=== PATIENT | female | born 1965 | race Caucasian/White ===

== ENCOUNTER 2023-08-18 11:36 | Outpatient (CLI) | payer MEDICAID, SELFPAY ==
--- NOTE | ~2023-08-18 | XR_ITS ---
EXAMINATION: XR chest 2V Exam Date/Time: 08/18/2023 12:07 CDT HISTORY: dyspnea, sob with exertion Comparison: None. RESULT: Lines, tubes, and devices: Cholecystectomy clips. Lungs and pleura: Clear. Cardiomediastinal silhouette: Unremarkable. Other: No acute osseous or upper abdominal finding. IMPRESSION: No acute cardiopulmonary process. Reviewed, dictated and finalized at location K.
[2023-08-18 12:09] LABS: Basophils Absolute Auto 0.06 K/mm3 (0.00-0.10); Basophils Percent Auto 0.7 % (0.0-1.0); Eosinophils Absolute Auto 0.25 K/mm3 (0.02-0.50); Hematocrit 38.5 % (35.0-49.0); Hemoglobin 12.2 g/dL (12.0-15.0); Immature Granulocyte Absolute 0.02 K/mm3 (0.00-0.00); Immature Granulocyte Percent A 0.2 % (0.0-0.0); Lymphocytes Absolute Auto 2.74 K/mm3 (1.10-4.50); Lymphocytes Percent Auto 33.4 % (18.0-42.0); Mean Corpuscular HGB Conc 31.7 g/dL (32-36); Mean Corpuscular Volume 94.8 fL (78.0-102.0); Mean Platelet Volume 9.9 fl (9.2-11.8); Monocytes Absolute Auto 0.63 K/mm3 (0.10-0.90); Monocytes Percent Auto 7.7 % (2.0-11.0); Neutrophils Absolute Auto 4.51 K/mm3 (1.70-7.20); Platelet Count Result 272 K/mm3 (150-420); Red Blood Count 4.06 M/mm3 (4.20-5.40); Red Cell Distribution Width 13.5 % (11.6-14.4); White Blood Count 8.2 K/mm3 (4.8-10.8)
[2023-08-18 12:46] LABS: Alanine Aminotransferase 17 U/L (14-59); Albumin Level 3.8 g/dL (3.4-5.0); Alkaline Phosphatase 71 U/L (46-116); Anion Gap 13 mmol/L (4-12); Aspartate Amino Transferase 12 U/L (15-37); Bilirubin,Total 0.5 mg/dL (0.00-1.00); Blood Urea Nitrogen 46 mg/dL (7-18); Calcium 8.9 mg/dL (8.5-10.1); Carbon Dioxide 22 mmol/L (21-32); Chloride 108 mmol/L (98-108); Estimated Glomerular Filt Rate 22; Glucose 97 mg/dL (70-99); Osmolality Calculated 307 mOsm/kg (285-295); Potassium 4.7 mmol/L (3.5-5.1); Sodium 143 mmol/L (136-145); Thyroid Stimulating Hormone 1.05 uIU/mL (0.36-3.74); Total Protein 7.4 g/dL (6.4-8.2)
== END 2023-08-18 11:37 | disposition home or self-care (01) ==
LOC: CHSLAB 11:41
PROVIDERS: PCP Family Medicine; Visit Provider Family Medicine
DX: R03.0 Elevated blood-pressure reading, without diagnosis of hypertension (principal); R06.00 Dyspnea, unspecified; Z12.39 Encounter for other screening for malignant neoplasm of breast
CPT/HCPCS: 36415; 71046; 80053; 84443; 85025

== ENCOUNTER 2023-08-20 08:43 | Outpatient (CLI) | payer MEDICAID, SELFPAY ==
--- NOTE | ~2023-08-20 | US_ITS ---
Renal-Bladder ultrasound Clinical History: Elevated creatinine Technique: Real-time sonographic imaging of the kidneys and urinary bladder was performed. Findings: The right kidney measures 14.6 cm in length and the left kidney measures 12.3 cm. There is moderate bilateral hydronephrosis. Renal cortical echogenicity is within normal limits. No renal mass lesion is identified. The urinary bladder is relatively collapsed. There is an apparent vascularized mass at the posterior bladder base measuring approximately 3.9 cm in diameter. Impression: Moderate bilateral hydronephrosis. Collapsed urinary bladder limits evaluation, but there is a suspected 3.9 cm soft tissue mass at the bladder base, which would be suspicious for neoplasm. Cystoscopy should be considered to further eval uate. Reviewed, dictated and finalized at location . Impression: Moderate bilateral hydronephrosis. Collapsed urinary bladder limits evaluation, but there is a suspected 3.9 cm so ft tissue mass at the bladder base, which would be suspicious for neoplasm. Cys toscopy should be considered to further evaluate.
== END 2023-08-20 08:44 | disposition home or self-care (01) ==
LOC: CHSIMG 08:44
PROVIDERS: PCP Family Medicine; Visit Provider Family Medicine
DX: R94.4 Abnormal results of kidney function studies (principal); N13.30 Unspecified hydronephrosis; R93.41 Abnormal radiologic findings on diagnostic imaging of renal pelvis, ureter, or bladder
CPT/HCPCS: 76775

== ENCOUNTER 2023-08-28 12:25 | Outpatient (CLI) | payer MEDICAID, SELFPAY ==
--- NOTE | ~2023-08-28 | MM_ITS ---
EXAMINATION: MM screening herman BI w shayna HISTORY: Screening TECHNIQUE: Craniocaudal and mediolateral oblique 3-D tomosynthesis images were obtained and synthetic 2-D images were generated. CAD analysis was submitted and interpreted. COMPARISON: No prior mammogram is available for comparison at this institution. BREAST PARENCHYMAL COMPOSITION: Not dense: There are scattered areas of fibroglandular density. FINDINGS: There are asymmetries centered in the upper outer quadrant of the right breast. No mammogra phic evidence for malignancy in the left breast. IMPRESSION: 1. Right breast asymmetries. 2. Additional mammographic views and possible breast ultrasound are recommended. BI-RADS Category 0: Incomplete: Needs additional imaging evaluation. Reviewed, dictated and finalized at location A. IMPRESSION: 1. Right breast asymmetries. 2. Additional mammographic views and possible breast ultrasound are recommended . BI-RADS Category 0: Incomplete: Needs additional imaging evaluation.
[2023-08-28 13:53] LABS: Anion Gap 9 mmol/L (4-12); Blood Urea Nitrogen 34 mg/dL (7-18); Calcium 8.5 mg/dL (8.5-10.1); Carbon Dioxide 28 mmol/L (21-32); Chloride 107 mmol/L (98-108); Estimated Glomerular Filt Rate 28; Glucose 97 mg/dL (70-99); Osmolality Calculated 305 mOsm/kg (285-295); Potassium 4.4 mmol/L (3.5-5.1); Sodium 144 mmol/L (136-145)
== END 2023-08-28 12:26 | disposition home or self-care (01) ==
PROVIDERS: PCP Family Medicine; Visit Provider Family Medicine
DX: Z12.31 Encounter for screening mammogram for malignant neoplasm of breast (principal); N32.89 Other specified disorders of bladder; N19 Unspecified kidney failure; R06.00 Dyspnea, unspecified
CPT/HCPCS: 36415; 77063; 77067; 80048; 80053

== ENCOUNTER 2023-09-03 07:55 | Outpatient (CLI) | payer MEDICAID, SELFPAY ==
--- NOTE | ~2023-09-03 | MMUS_ITS ---
EXAMINATION: MM diagnostic herman RT w shayna, US breast RT limited HISTORY: Follow-up right breast asymmetry TECHNIQUE: Additional 3-D tomosynthesis images of the right breast were performed and synthetic 2-D i mages were generated. CAD analysis was submitted and interpreted. High resolution Limited right breas t ultrasound was performed. COMPARISON: 08/28/2023 BREAST PARENCHYMAL COMPOSITION: Not dense: There are scattered areas of fibroglandular density. FINDINGS: MAMMOGRAPHIC FINDINGS: There are persistent asymmetries in the upper outer quadrant of the right breast, although no discret e mass is identified. There are no suspicious calcifications. ULTRASOUND: Limited right breast ultrasound: Normal heterogeneous echotexture without focal mass. IMPRESSION: 1. Probable benign asymmetries of the right breast. No sonographic correlate. 2. Recommend 6 month follow-up diagnostic right mammogram BI-RADS category 3, probably benign findings. Reviewed, dictated and finalized at location A. IMPRESSION: 1. Probable benign asymmetries of the right breast. No sonographic correlate. 2. Recommend 6 month follow-up diagnostic right mammogram BI-RADS category 3, probably benign findings.
--- NOTE | ~2023-09-03 | CT_ITS ---
Non-contrast CT scan of the Abdomen and Pelvis Clinical indication: Urinary incontinence, mass Technique: 2.5 mm axial scans were obtained through the abdomen and pelvis without intravenous or or al contrast. Dose reduction technique was used on this scan by utilizing automated exposure control a nd iterative reconstruction technique. The dose-length product (DLP) was 1481.17 mGy-cm. Findings: Images through the lung bases reveal no abnormalities. Moderate bilateral hydroureteronephrosis present. No stone identified. The liver, spleen, pancreas, and adrenals appear normal. Cholecystectomy clips are present. There are atherosclerotic calcifications of the aorta. . There is no evidence of bowel obstruction. Images through the pelvis were performed. There is no evidence of ascites or lymphadenopathy. Probabl e large urinary bladder mass centered to the right side posteriorly, measuring approximately 5 cm in diameter. There is extensive underlying wall thickening of the posterior bladder. There is an enlarge d 3.5 x 2.7 cm right pelvic sidewall/external iliac chain lymph node (axial image 139).. Impression: Approximate 5 cm bladder mass centered the posterior right side, highly suspicious for urinary bladde r carcinoma. Enlarged 3.5 x 2.7 cm right pelvic sidewall/external iliac chain lymph node, most consistent with met astatic lymphadenopathy. Underlying posterior bladder wall thickening could reflect associated cystitis or possibly blood prod ucts versus tumor extension. Moderate bilateral hydronephrosis, most likely related to obstruction by the aforementioned bladder m ass. Reviewed, dictated and finalized at [facility]. Impression: Approximate 5 cm bladder mass centered the posterior right side, highly suspici ous for urinary bladder carcinoma. Enlarged 3.5 x 2.7 cm right pelvic sidewall/external iliac chain lymph node, mo st consistent with metastatic lymphadenopathy. Underlying posterior bladder wall thickening could reflect associated cystitis or possibly blood products versus tumor extension. Moderate bilateral hydronephrosis, most likely related to obstruction by the af orementioned bladder mass.
== END 2023-09-03 07:56 | disposition home or self-care (01) ==
LOC: CHSIMG 07:56
PROVIDERS: PCP Family Medicine
DX: R32 Unspecified urinary incontinence (principal); R92.8 Other abnormal and inconclusive findings on diagnostic imaging of breast; N32.9 Bladder disorder, unspecified; R59.0 Localized enlarged lymph nodes; N13.30 Unspecified hydronephrosis
CPT/HCPCS: 74176; 76642; 77061; 77065; G0279

== ENCOUNTER 2023-10-05 09:35 | Outpatient (CLI) | payer OTHER, SELFPAY ==
[2023-10-05 10:07] LABS: Basophils Absolute Auto 0.05 K/mm3 (0.00-0.10); Basophils Percent Auto 0.7 % (0.0-1.0); Eosinophils Percent Auto 2.8 % (1.0-6.0); Hematocrit 37.5 % (35.0-49.0); Hemoglobin 11.9 g/dL (12.0-15.0); Immature Granulocyte Absolute 0.02 K/mm3 (0.00-0.00); Immature Granulocyte Percent A 0.3 % (0.0-0.0); Lymphocytes Absolute Auto 2.33 K/mm3 (1.10-4.50); Lymphocytes Percent Auto 33.1 % (18.0-42.0); Mean Corpuscular HGB Conc 31.7 g/dL (32-36); Mean Corpuscular Hemoglobin 30.6 pg (27.0-31.0); Mean Corpuscular Volume 96.4 fL (78.0-102.0); Mean Platelet Volume 10.4 fl (9.2-11.8); Monocytes Absolute Auto 0.57 K/mm3 (0.10-0.90); Monocytes Percent Auto 8.1 % (2.0-11.0); Neutrophils Absolute Auto 3.86 K/mm3 (1.70-7.20); Platelet Count Result 249 K/mm3 (150-420); Red Blood Count 3.89 M/mm3 (4.20-5.40); Red Cell Distribution Width 13.2 % (11.6-14.4)
[2023-10-05 11:36] LABS: Appearance Urine Clear (Clear); Bilirubin Urine Negative (Negative); Blood Urine 3+ (Negative); Color Urine Light Yellow (Yellow); Glucose Urine UA Negative (Negative); Ketones Urine Negative (Negative); Leukocyte Esterase Ur 3+ (Negative); Nitrate Urine Negative (Negative); Protein Urine 2+ (Negative); Specific Grav Ur 1.015 (1.010-1.020); Urobilinogen Urine 0.2 mg/dL (0.2-1.0); pH Urine 7.5 (5.0-8.0)
[2023-10-05 11:37] LABS: Add Urine Microscopic? YES; Bacteria Urine 1+ /hpf; Renal Epithelial Cells Urine Few /hpf; Squamous Epithelial Cell Urine Few /hpf (Few); WBC Urine 16-20 /hpf (0-3)
[2023-10-05 16:07] LABS: Anion Gap 9 mmol/L (4-12); Blood Urea Nitrogen 40 mg/dL (7-17); Calcium 9.2 mg/dL (8.4-10.2); Carbon Dioxide 20 mmol/L (22-30); Chloride 111 mmol/L (98-107); Estimated Glomerular Filt Rate 27; Glucose 95 mg/dL (65-110); Osmolality Calculated 299 mOsm/kg (285-295); Potassium 4.9 mmol/L (3.4-5.0); Sodium 140 mmol/L (137-145)
== END 2023-10-05 09:36 | disposition home or self-care (01) ==
LOC: CHSLAB 09:40
PROVIDERS: PCP Family Medicine; Visit Provider Family Medicine
DX: Z01.818 Encounter for other preprocedural examination (principal); N32.89 Other specified disorders of bladder
CPT/HCPCS: 36415; 80048; 81001; 85025; 87077; 87086; 87088; 87186

== ENCOUNTER 2025-04-19 09:39 | Outpatient (CLI) | payer OTHER, SELFPAY ==
--- NOTE | 2025-04-19 | EST_ITS ---
Patient Info Name: Kusum Su Age: 59 years : 1965 Gender: Female Ht: 65 in Wt: 328 lbs BSA: 2.71 m2 HR: 77 bpm BP: 148 / 77 mmHg Exam Date: 04/19/2025 9:46 AM Patient Status: O Admit Date: 04/19/2025 Exam Type: CA stress lindsay w NM A regadenoson stress test was performed. Staff Referring Physician: Rob Painter MD Attending Provider: Rob Painter MD Exercise Technologist: Eufemia Sawant Exercise Physician: Yousif Chu DO Summary 1. 1. Negative lexiscan stress test for ischemic ST changes by ECG criteria. 2. 2. Stable hemodynamics throughout the test. 3. 3. Nuclear scan to follow and will be reported separately. Please correlate with it. 4. 4. Patient informed of the above results. Protocol: Lexiscan Stress ECG Details Stage: REST Duration (min): 0 min : 57 sec HR (bpm): 77 SBP (mmHg): 148 DBP (mmHg): 77 Stage: REST Duration (min): 5 min : 18 sec HR (bpm): 71 SBP (mmHg): 148 DBP (mmHg): 77 Stage: STAGE 1 Duration (min): 1 min : 0 sec HR (bpm): 89 SBP (mmHg): 136 DBP (mmHg): 82 Stage: RECOVERY Duration (min): 1 min : 0 sec HR (bpm): 93 SBP (mmHg): 136 DBP (mmHg): 82 Stage: RECOVERY Duration (min): 2 min : 0 sec HR (bpm): 90 SBP (mmHg): 136 DBP (mmHg): 82 Stage: RECOVERY Duration (min): 3 min : 0 sec HR (bpm): 88 SBP (mmHg): 113 DBP (mmHg): 77 Stage: RECOVERY Duration (min): 3 min : 5 sec HR (bpm): 87 SBP (mmHg): 113 DBP (mmHg): 77 Rest HR: 71 bpm Peak HR: 95 bpm Rest Sys BP: 148 mmHg Peak Sys BP: 136 mmHg Max Pred HR: 160 bpm % Max Pred HR: 59 % Target HR: 136 bpm Max RPP: 12,920 bpm*mmHg Termination Reason: Completed protocol Cardiac Symptoms: Shortness of breath Total Time: 1 min : 0 sec Rest Donaldson BP: 77 mmHg Peak Donaldson BP: 82 mmHg Total Dose: 0.4 mg Resting ECG Sinus rhythm. Stress ECG No ST changes. Arrhythmias None. Report Signatures
--- NOTE | ~2025-04-19 | NM_ITS ---
EXAMINATION: NM lindsay stress w perfusion DATE: 04/19/2025 11:29 INDICATION: Abnormal electrocardiogram. TECHNIQUE: Rest images were obtained following intravenous administration of 10 mCi Tc99m tetrofosmin (Myoview). The patient was infused intravenously with Lexiscan (regadenoson). Then, 31 mCi Tc99m tetrofosmin (Myoview) was administered intravenously, and stress images were obtained. Data was reconstr ucted into short axis and horizontal and vertical long axis SPECT images. Gated SPECT images were also obtained. COMPARISON: None. FINDINGS: There is no definite reversible or fixed perfusion abnormality to suggest ischemia or infarction. There is no segmental wall motion abnormality. Left ventricular ejection fraction measures > 70%. IMPRESSION: 1. No definite ischemia or infarct. 2. Normal left ventricular ejection fraction measuring >70%. Reviewed, dictated and finalized at location E. [employer]
== END 2025-04-19 09:40 | disposition home or self-care (01) ==
PROVIDERS: PCP Family Medicine; Visit Provider Family Medicine
DX: R94.31 Abnormal electrocardiogram [ECG] [EKG] (principal)
CPT/HCPCS: 78452; 93017; A9502; J2785